=== PATIENT | female | born 1970 | race Caucasian/White ===

== ENCOUNTER 2021-01-18 12:29 | Emergency (ER) | payer MEDICAID ==
[~2021-01-18] VITALS: Ht 170.2 cm; Wt 101.2 kg
[2021-01-18 12:57] VITALS: BP_SYST 174
--- NOTE | 2021-01-18 12:57 | NUR ---
Placed in room 5 . Placed on blood pressure machine and pulse oximeter. To gown for exam. Side rails up.
--- NOTE | 2021-01-18 13:00 | NUR ---
ER at bedside examining patient.
--- NOTE | 2021-01-18 13:05 | NUR ---
PT BROUGHT SELF TO ER FOR L WRIST PAIN X 6WKS WORKING X 2-3 DAYS DENIES INJURY OR TRAUMA. NO OBVIOUS DEFORMITY, PT IS AAOX4, V/S STABLE
[2021-01-18] MEDS ORDERED: PRED20TA PO (13:30)
[2021-01-18] MEDS ORDERED: NAPR-688 PO (13:30)
[2021-01-18] MEDS ORDERED: TRAM50TA PO (13:30)
[2021-01-18 13:50] VITALS: BP_SYST 174
--- NOTE | 2021-01-18 13:50 | NUR ---
Patient given written and verbal discharge instructions and verbalizes understanding. ER MD discussed with patient the results and treatment provided. Patient in stable condition. ID arm band removed. Rx of NAPROXEN, PREDNISONE AND TRAMADOL given. Patient educated on pain management and to follow up with PMD. Pain Scale 2/10. Opportunity for questions provided and answered. Medication side effect fact sheet provided.
== END 2021-01-18 13:50 | disposition home or self-care (01) ==
LOC: SED 12:29
DX: M13.832 Other specified arthritis, left wrist (principal)
CPT/HCPCS: 99283

== ENCOUNTER 2021-11-19 15:36 | Emergency (ER) | payer OTHER, SELFPAY ==
[~2021-11-19] VITALS: Ht 170.2 cm; Wt 97.5 kg
[2021-11-19 15:36] VITALS: BP_SYST 177
[~2021-11-19 15:36] MED LIST: NAPR-688 PO; PRED20TA PO; TRAM50TA PO
--- NOTE | 2021-11-19 15:40 | NUR ---
Patient triaged and placed in waiting room. VSS and patient appears in no acute distress at this time. Accompanied by SELF, awaiting available bed, and MD notified of need for MSE.
--- NOTE | 2021-11-19 15:45 | NUR ---
PT STATES THAT SHE WAS RETURNING A BATTERY WHILE AT WORK AND INJURED LEFT WRIST. PAIN WITH MOVEMENT. PT WORKS [employer].
--- NOTE | 2021-11-19 15:55 | NUR ---
DR JONES TO TRIAGE ROOM TO EVALUATE PT.
--- NOTE | 2021-11-19 16:40 | NUR ---
VELCRO SPLINT APPLIED, PT ADJUSTED FOR COMFORT AND STATES LEFT WRIST FEELS BETTER.
--- NOTE | 2021-11-19 16:58 | NUR ---
Patient given written and verbal discharge instructions and verbalizes understanding. ER MD discussed with patient the results and treatment provided. Patient in stable condition. ID arm band removed. Rx of NONE given. Patient educated on pain management and to follow up with PMD. Pain Scale 0/10. Opportunity for questions provided and answered. Medication side effect fact sheet provided.
== END 2021-11-19 16:58 | disposition home or self-care (01) ==
LOC: SED 15:36
DX: S63.502A Unspecified sprain of left wrist, initial encounter (principal); S60.222A Contusion of left hand, initial encounter; I10 Essential (primary) hypertension; Z79.899 Other long term (current) drug therapy; W20.8XXA Other cause of strike by thrown, projected or falling object, initial encounter; Y93.89 Activity, other specified; Y92.89 Other specified places as the place of occurrence of the external cause; Y99.0 Civilian activity done for income or pay
CPT/HCPCS: 99284